=== PATIENT | female | born 1995 | race American Indian/Alaskan Native ===

== ENCOUNTER 2017-04-03 12:49 | Emergency (ER) | payer MEDICAID ==
--- NOTE | 2017-04-03 12:57 | Emergency Department Report ---
Chief Complaint: Vaginal Bleeding Stated Complaint: 9 WKS PREGN/ABD PAIN Time Seen by Provider: 04/03/17 12:55 - HPI History of Present Illness: PT states she is 9 weeks . PT reports intermittent "period cramps" and spotting x 2 weeks - ROS Review of Systems: + lower abd cramps + spotting - Exam Physical Exam: abd soft, non tender MSE screening note: Focused history and physical exam performed. Due to findings the following was ordered: labs, us ED Disposition for MSE Condition: Stable
[2017-04-03 14:06] LABS: Bacteria,Urine 1+ /HPF (Negative); Bilirubin,Urine NEG (Negative); Blood,Urine NEG (Negative); Ketones,Urine TR mg/dL (Negative); Leukocyte Esterase,Urine LG (Negative); Mucus,Urine 3+ /HPF; Nitrite,Urine NEG (Negative)
[2017-04-03 14:19] LABS: Basophils % (Auto) 0.3 % (0.0-1.8); Eosinophils % (Auto) 0.1 % (0.0-4.3); Hematocrit 36.9 % (30.3-42.9); Hemoglobin 11.9 gm/dl (10.1-14.3); Mean Corpuscular HGB Conc 32 % (30-34); Mean Corpuscular Hemoglobin 29 pg (28-32); Mean Corpuscular Volume 91 fl (79-97); Platelet Count 254 K/mm3 (140-440); Red Blood Count 4.07 M/mm3 (3.65-5.03); White Blood Count 12.5 K/mm3 (4.5-11.0)
[2017-04-03 14:22] LABS: Alanine Aminotransferase 8 units/L (7-56); Albumin 3.8 g/dL (3.9-5); Alkaline Phosphatase 64 units/L (35-129); Anion Gap 19 mmol/L; Blood Urea Nitrogen 7 mg/dL (7-17); Calcium 9.1 mg/dL (8.4-10.2); Carbon Dioxide 22 mmol/L (22-30); Chloride 100.9 mmol/L (98-107); Glucose 76 mg/dL (65-100); Sodium 138 mmol/L (137-145); Total Protein 7.5 g/dL (6.3-8.2)
--- NOTE | 2017-04-03 16:21 | Ultrasound Report ---
Transabdominal and transvaginal OB ultrasound. History: Vaginal spotting and pelvic pain. Findings: There is a single intrauterine with a crown-rump length measuring 3.7 cm which corresponds to a gestational age of 10 weeks 4 days. The heart rate is 176 beats per minute. There is no subchorionic hemorrhage. The ovaries are normal in size and configuration. Impression: Viable IUP at 10-1/2 weeks gestation
[2017-04-03 17:49] VITALS: BP 100/68
== END 2017-04-03 17:51 | disposition left against medical advice (07) ==
LOC: ED 12:49
DX: O26.851 Spotting complicating pregnancy, first trimester (principal); R10.30 Lower abdominal pain, unspecified; Z3A.09 9 weeks gestation of pregnancy; Z53.21 Procedure and treatment not carried out due to patient leaving prior to being seen by health care provider
CPT/HCPCS: 36415; 76801; 76817; 80053; 81001; 84702; 85025; 86900; 86901

== ENCOUNTER 2017-04-09 16:14 | Emergency (ER) | payer MEDICAID, OTHER ==
[2017-04-09 16:21] VITALS: BP 111/80
--- NOTE | 2017-04-09 16:55 | Emergency Department Report ---
Chief Complaint: Abdominal Pain Stated Complaint: 11WKS PREG/ABD PAIN Time Seen by Provider: 04/09/17 16:49 - HPI History of Present Illness: pt states she is 11 weeks . with R pelvic abd pain pt states she was recently dx with uti and did not fill rx - ROS Review of Systems: - vaginal bleeding - Exam Vital Signs: Vital Signs 04/09/17 16:19 Temperature 98.8 F Pulse Rate 99 H Respiratory 20 Rate Blood Pressure 111/80 O2 Sat by Pulse 100 Oximetry Physical Exam: abd soft + r pelvic pain MSE screening note: Focused history and physical exam performed. Due to findings the following was ordered: labs, us ED Disposition for MSE Condition: Stable Instructions: Abdominal Pain (ED)
[2017-04-09 17:26] LABS: Alanine Aminotransferase 10 units/L (7-56); Albumin 3.6 g/dL (3.9-5); Alkaline Phosphatase 60 units/L (35-129); Anion Gap 19 mmol/L; Blood Urea Nitrogen 9 mg/dL (7-17); Calcium 8.8 mg/dL (8.4-10.2); Carbon Dioxide 22 mmol/L (22-30); Chloride 99.8 mmol/L (98-107); Glucose 95 mg/dL (65-100); Potassium 3.8 mmol/L (3.6-5.0); Sodium 137 mmol/L (137-145); Total Protein 7.3 g/dL (6.3-8.2)
[2017-04-09 17:28] LABS: Basophils % (Auto) 0.2 % (0.0-1.8); Eosinophils % (Auto) 0.1 % (0.0-4.3); Hematocrit 36.4 % (30.3-42.9); Hemoglobin 11.7 gm/dl (10.1-14.3); Mean Corpuscular HGB Conc 32 % (30-34); Mean Corpuscular Hemoglobin 29 pg (28-32); Mean Corpuscular Volume 91 fl (79-97); Platelet Count 246 K/mm3 (140-440); Red Blood Count 4.01 M/mm3 (3.65-5.03); Red Cell Distribution Width 14.8 % (13.2-15.2); White Blood Count 15.5 K/mm3 (4.5-11.0)
[2017-04-09 17:31] LABS: Bilirubin,Urine NEG (Negative); Blood,Urine NEG (Negative); Ketones,Urine 20 mg/dL (Negative); Leukocyte Esterase,Urine TR (Negative); Mucus,Urine 3+ /HPF; Nitrite,Urine NEG (Negative); WBC,Urine < 1.0 /HPF (0.0-6.0)
--- NOTE | 2017-04-09 18:52 | Ultrasound Report ---
FINAL REPORT EXAM: US OB \T\lt; = 14 WEEKS FETUS HISTORY: pain in the pelvis with cramping LMP unknown. LMP the 01/19/2017 the with estimated age 11 weeks 3 days and EDC 10/26/2017. A serum HCG quantitation level 61,430 TECHNIQUE: Ultrasound of the pelvis using transabdominal imaging PRIORS: Previous scan dated 04/03/2017 is not available for direct visual comparison. FINDINGS: Uterus: Uterus is enlarged in size and normal and homogeneous in echogenicity without focal fibroid formation. The uterus measures 12.7 x 9.5 x 8.3 cm in size. There is a single early viable intrauterine gestation noted. Intrauterine gestation: There is a single intrauterine gestation identified with both a pole and yolk sac. heart rate is monitored at 169 BPM using M-mode doppler. Gore-rump length measurement of 5.2 cm corresponds to estimated age 11 weeks 6 days with EDC 10/23/2017. Ovaries: Both ovaries appear normal in size and echogenicity. The right ovary measures 2.6 x 2.0 x 1.7 cm on the left ovary measures 2.5 x 1.3 x 2.5 cm in size. Other: There is no evidence for solid adnexal mass is seen. There is no free fluid in the cul-de-sac. IMPRESSION: Single intrauterine viable with an approximate age of 11 weeks 6 days.
--- NOTE | 2017-04-30 15:28 | ED Elopement Review ---
ED Pt Elopement review - Results review Lab results: Laboratory Tests 04/09/17 04/09/17 04/09/17 16:54 16:54 16:54 WBC 15.5 H RBC 4.01 Hgb 11.7 Hct 36.4 MCV 91 MCH 29 MCHC 32 RDW 14.8 Plt Count 246 Lymph % (Auto) 20.4 Mccone % (Auto) 7.7 H Eos % (Auto) 0.1 Baso % (Auto) 0.2 Lymph # 3.2 Mccone # 1.2 H Eos # 0.0 Baso # 0.0 Seg Neutrophils % 71.6 H Seg Neutrophils # 11.1 H Sodium 137 Potassium 3.8 Chloride 99.8 Carbon Dioxide 22 Anion Gap 19 BUN 9 Creatinine 0.6 L Estimated GFR > 60 BUN/Creatinine Ratio 15.00 Glucose 95 Calcium 8.8 Total Bilirubin 0.30 AST 23 ALT 10 Alkaline Phosphatase 60 Total Protein 7.3 Albumin 3.6 L Albumin/Globulin Ratio 1.0 HCG, Quant 83627 H Urine Color Urine Turbidity Urine pH Ur Specific [place] Urine Protein Urine Glucose (UA) Urine Ketones Urine Blood Urine Nitrite Urine Bilirubin Urine Urobilinogen Ur Leukocyte Esterase Urine WBC (Auto) Urine RBC (Auto) U Epithel Cells (Auto) Urine Mucus 04/09/17 17:01 WBC RBC Hgb Hct MCV MCH MCHC RDW Plt Count Lymph % (Auto) Mccone % (Auto) Eos % (Auto) Baso % (Auto) Lymph # Mccone # Eos # Baso # Seg Neutrophils % Seg Neutrophils # Sodium Potassium Chloride Carbon Dioxide Anion Gap BUN Creatinine Estimated GFR BUN/Creatinine Ratio Glucose Calcium Total Bilirubin AST ALT Alkaline Phosphatase Total Protein Albumin Albumin/Globulin Ratio HCG, Quant Urine Color Yellow Urine Turbidity Clear Urine pH 6.0 Ur Specific [place] 1.027 Urine Protein 30 mg/dl Urine Glucose (UA) Neg Urine Ketones 20 Urine Blood Neg Urine Nitrite Neg Urine Bilirubin Neg Urine Urobilinogen 2.0 Ur Leukocyte Esterase Tr Urine WBC (Auto) < 1.0 Urine RBC (Auto) 3.0 U Epithel Cells (Auto) 2.0 Urine Mucus 3+ - Call Back decision Pt Call Back Decision: Pt to F/U with PMD
== END 2017-04-09 20:45 | disposition left against medical advice (07) ==
LOC: ED 16:14
DX: R10.9 Unspecified abdominal pain (principal); Z53.21 Procedure and treatment not carried out due to patient leaving prior to being seen by health care provider
CPT/HCPCS: 36415; 76801; 80053; 81001; 84702; 85025